=== PATIENT | female | born 1935 | race Caucasian/White ===

== ENCOUNTER → 2022-10-28 | Emergency (ER) | payer MEDICARE, BC ==
[~2022-10-28] VITALS: Ht 170.2 cm; Wt 81.7 kg
[~2022-10-28] MED LIST: ATENOLOL100 MG PO; BRIMONIDINE TART5 ML OPTH; CITALOPRAM HBR10 MG PO; ELIQUIS5 MG PO; HYDROCHLOROTHIA25 MG PO; LATANOPROST2.5 ML OPTH; LISINOPRIL40 MG PO; METOPROLOL SUC100 MG PO; POTASSIUM CHLO20 ME1 PO; PRAVASTATIN SOD20 MG PO
== END ==
LOC: ED 01:57
DX: E86.0 Dehydration (principal); I48.91 Unspecified atrial fibrillation; I10 Essential (primary) hypertension; Z79.899 Other long term (current) drug therapy; W19.XXXA Unspecified fall, initial encounter
CPT/HCPCS: 36415; 70450; 72125; 80053; 81001; 85025; 99284-25; J7040